=== PATIENT | female | born 1990 | race Caucasian/White ===

== ENCOUNTER 2020-09-27 08:31 | Emergency (ER) | payer MEDICAID ==
[~2020-09-27] VITALS: Ht 160 cm; Wt 73.2 kg
[~2020-09-27 08:31] MED LIST: METF500T17 PO
--- NOTE | 2020-09-27 10:05 | NUR ---
PT SITTING UPRIGHT ON GURNEY WATCHING TV AND ON CELL PHONE. NAD, VSS. PT PROVIDED WARM BLANKET. NO ADDITIONAL NEEDS AT THIS TIME. CALL LIGHT WITHIN REACH. WILL CONTINUE TO MONITOR.
[2020-09-27 10:07] LABS: BASOPHILS % (AUTO) 0 % (0-1); EOSINOPHILS % (AUTO) 0 % (1-7); LYMPHOCYTES % (AUTO) 18 % (22-44); MEAN CORPUSCULAR HEMOGLOBIN 28.3 pg (27.0-34.8); MEAN CORPUSCULAR HGB CONC 32.9 g/dL (32.4-35.8); MONOCYTES % (AUTO) 6 % (2-9); NEUTROPHILS % (AUTO) 76 % (42-75); PLATELET COUNT 159 x10^3/uL (130-400); RED BLOOD COUNT 5.32 x10^6/uL (3.82-5.3); RED CELL DISTRIBUTION WIDTH 13.7 % (9.6-15.2)
[2020-09-27 10:09] LABS: MD NO
[2020-09-27 10:14] LABS: ALBUMIN 3.3 g/dL (3.4-5.0); ANION GAP 5 mmol/L (5-15); CALCIUM 8.3 mg/dL (8.5-10.1); CHLORIDE 101 mmol/L (98-107)
[2020-09-27 10:20] LABS: ALANINE AMINOTRANSFERASE 98 U/L (12-78); ALKALINE PHOSPHATASE 116 U/L (45-117); BILIRUBIN,TOTAL 0.2 mg/dL (0.2-1.0); CREATININE 0.73 mg/dL (0.55-1.02); TOTAL PROTEIN 7.7 g/dL (6.4-8.2); TROPONIN I < 0.015 ng/mL (0.000-0.045)
[2020-09-27] MEDS ORDERED: SODIUM CHLORIDE 0.9% 1,000ML IVBOLUS ONE (10:30)
[2020-09-27 10:33] LABS: RAPID INFLUENZA A Negative (Negative); RAPID INFLUENZA B Negative (Negative)
[2020-09-27 11:50] VITALS: BP 112/60
--- NOTE | 2020-09-27 11:50 | NUR ---
Patient given discharge instructions and they have confirmed that they understand the instructions. Patient ambulatory with steady gait.
== END 2020-09-27 11:52 | disposition home or self-care (01) ==
LOC: ED 10:34
DX: U07.1 COVID-19 (principal); E11.65 Type 2 diabetes mellitus with hyperglycemia; R94.5 Abnormal results of liver function studies; R94.31 Abnormal electrocardiogram [ECG] [EKG]
CPT/HCPCS: 36415; 71045; 80053; 82962; 83605; 84484; 85025; 85379; 87040; 87400; 87635; 93005; 96360; 99285; J7030

== ENCOUNTER 2020-09-30 15:54 | Emergency (ER) | payer MEDICAID ==
[~2020-09-30] VITALS: Ht 162.6 cm; Wt 71.6 kg
[2020-09-30 16:58] LABS: BASOPHILS % (AUTO) 1 % (0-1); EOSINOPHILS % (AUTO) 0 % (1-7); LYMPHOCYTES % (AUTO) 20 % (22-44); MEAN CORPUSCULAR HEMOGLOBIN 28.4 pg (27.0-34.8); MEAN CORPUSCULAR HGB CONC 33.5 g/dL (32.4-35.8); MEAN PLATELET VOLUME 8.1 fL (7.4-10.4); MONOCYTES % (AUTO) 8 % (2-9); NEUTROPHILS % (AUTO) 72 % (42-75); PLATELET COUNT 224 x10^3/uL (130-400); RED BLOOD COUNT 5.21 x10^6/uL (3.82-5.3); RED CELL DISTRIBUTION WIDTH 13.9 % (9.6-15.2)
[2020-09-30 17:02] LABS: MD NO
[2020-09-30 17:06] LABS: ALBUMIN 2.9 g/dL (3.4-5.0); ANION GAP 6 mmol/L (5-15); CALCIUM 8.7 mg/dL (8.5-10.1); CHLORIDE 101 mmol/L (98-107); CREATININE 0.78 mg/dL (0.55-1.02)
[2020-09-30] MEDS ORDERED: ASPIRIN 81 MG TABLET CHEW ONE (20:51)
[2020-09-30] MEDS ORDERED: ASPIRIN 81 MG TABLET CHEW PO ONE (21:00)
--- NOTE | 2020-09-30 21:04 | NUR ---
PT WAS SEEN HERE EARLIER THIS AM FOR COVID AND RELATED SYMPTOMS, PT IS NAD, RESTING ON GURNEY, SIGNIFICANT OTHER AT BS, PULSES 2+, CAME IN FOR CHEST DISCOMFORT, RADIATING ACROSS CHEST, WORSENS WITH COUGHING AND DEEP BREATHING. SIGNIFICANT OTHER REPORTS PT WAS CONFUSED EARLIER AND HAVE DELUSIONS. ERP INFORMED. PT PLACED ON SPO2/BP/ECG MONITORING. WCTM.
[2020-09-30] MEDS ORDERED: KETOROLAC 60 MG/2 ML ONE (21:27)
[2020-09-30] MEDS ORDERED: KETOROLAC 30 MG/1 ML IM ONE (21:30)
--- NOTE | 2020-09-30 22:00 | NUR ---
LATE ENTRY D/T PT CARE: PT MEDICATED PER MAR FOR PAIN, NAD, NO CHANGE IN CONDITION, RESTING ON GURNEY, BED IN [facility], WAITING FOR RAD RESULTS .WCTM.
[2020-09-30 23:01] VITALS: BP 93/67
--- NOTE | 2020-09-30 23:02 | NUR ---
Patient given discharge instructions and they have confirmed that they understand the instructions. Patient ambulatory with steady gait. NAD, DENIES ADDITIONAL QUESTIONS OR NEEDS AT THIS TIME. NO PERSONAL BELONGINGS LEFT IN ROOM AT THE TIME OF DC.
== END 2020-09-30 23:06 | disposition home or self-care (01) ==
LOC: ED 21:13
DX: U07.1 COVID-19 (principal); J06.9 Acute upper respiratory infection, unspecified; J18.9 Pneumonia, unspecified organism; R06.02 Shortness of breath; R05 Cough; R50.9 Fever, unspecified; R07.89 Other chest pain; R00.0 Tachycardia, unspecified; E11.65 Type 2 diabetes mellitus with hyperglycemia; I10 Essential (primary) hypertension; Z86.39 Personal history of other endocrine, nutritional and metabolic disease; Z87.891 Personal history of nicotine dependence
CPT/HCPCS: 36415; 71045; 80048; 82040; 85025; 93005; 96372; 99285; J1885

== ENCOUNTER 2020-12-03 10:15 | Emergency (ER) | payer MEDICAID ==
[~2020-12-03] VITALS: Ht 160 cm; Wt 73.6 kg
--- NOTE | 2020-12-03 11:11 | NUR ---
TASK RN: PT AMBULATORY TO ROOM 5 W/ C/O CRAMPING AND DISCHARGE W/ LOWER BACK PAIN X 2 DAYS. PER PT DENIES ANY VB BUT HAS YELLOW DISCHARGE. A0. PT STATES SHE DOES NOT KNOW HOW FAR ALONG SHE IS HER MENSTRUAL CYCLE IS IRREGULAR. PT RESTING ON GURNEY. NADN. MONITORS APPLIED. VSS. WARM BLANKET PROVIDED.
--- NOTE | 2020-12-03 11:26 | NUR ---
PIV placed, tolerates well, labs sent. Pt reports lower abd pain and radiates to low back x 2 days, states "cramping" denies abnormal vaginal bleeding, denies pain w/ urination, postiive home test, LMP in september. Urine is yellow and cloudy. Pt denies N/V, afebrile, vitals stable on monitor.
--- NOTE | 2020-12-03 11:28 | NUR ---
TASK RN: REPORT GIVEN TO DILEEP PRIMARY RN.
--- NOTE | 2020-12-03 11:42 | NUR ---
Pt taken to US, waiting for results.
[2020-12-03 11:54] LABS: BASOPHILS % (AUTO) 0 % (0-1); EOSINOPHILS % (AUTO) 1 % (1-7); LYMPHOCYTES % (AUTO) 24 % (22-44); MEAN CORPUSCULAR HEMOGLOBIN 29.3 pg (27.0-34.8); MONOCYTES % (AUTO) 5 % (2-9); NEUTROPHILS % (AUTO) 70 % (42-75); PLATELET COUNT 224 x10^3/uL (130-400); RED BLOOD COUNT 5.07 x10^6/uL (3.82-5.3); RED CELL DISTRIBUTION WIDTH 14.5 % (9.6-15.2)
[2020-12-03 11:57] LABS: MD NO
--- NOTE | 2020-12-03 11:59 | NUR ---
Pt back from US, vitals stable, waiting for results.
[2020-12-03 12:04] LABS: MICROSCOPIC INDICATED
[2020-12-03 12:07] LABS: ALBUMIN 3.3 g/dL (3.4-5.0); ANION GAP 9 mmol/L (5-15); CALCIUM 8.7 mg/dL (8.5-10.1); CHLORIDE 106 mmol/L (98-107); CREATININE 0.87 mg/dL (0.55-1.02)
[2020-12-03] MEDS ORDERED: CEFTRIAXONE PMX 1GM/50ML 50 ML ONE (13:06)
--- NOTE | 2020-12-03 13:12 | NUR ---
IV fluids and rocephin infusing per MD orders, vitals stable.
[2020-12-03] MEDS ORDERED: SODIUM CHLORIDE 0.9% 1,000ML IVBOLUS ONE (13:30)
[2020-12-03] MEDS ORDERED: CEFTRIAXONE PMX 1GM/50ML 50 ML IVPB ONE (13:30)
[2020-12-03 13:51] VITALS: BP 92/52
--- NOTE | 2020-12-03 13:52 | NUR ---
PT RESTING IN [facility] AT THIS TIME, MONITORING IN PLACE, PER PT NO NEEDS AT THIS TIME, WCTM.
== END 2020-12-03 14:16 | disposition home or self-care (01) ==
LOC: ED 12:09
DX: O23.41 Unspecified infection of urinary tract in pregnancy, first trimester (principal); N83.292 Other ovarian cyst, left side; R73.9 Hyperglycemia, unspecified; Z3A.01 Less than 8 weeks gestation of pregnancy; Z87.891 Personal history of nicotine dependence
CPT/HCPCS: 36415; 76801; 80048; 81001; 82040; 84702; 85025; 86901; 87086; 96365; 99284; J0696; J7030

== ENCOUNTER 2021-03-10 06:34 | Emergency (ER) | payer MEDICAID ==
[~2021-03-10] VITALS: Ht 160 cm; Wt 75.8 kg
[2021-03-10] MEDS ORDERED: SODIUM CHLORIDE 0.9% 1,000ML IVBOLUS ONE (07:00)
[2021-03-10] MEDS ORDERED: ONDANSETRON 2MG/ML, 2ML IVPush ONE (07:00)
[2021-03-10] MEDS ORDERED: MORPHINE SULFATE 4 MG/ML, 1ML IVPush PRN (07:00)
[2021-03-10] MEDS ORDERED: ONDANSETRON 2MG/ML, 2ML ONE (07:05)
[2021-03-10] MEDS ORDERED: MORPHINE SULFATE 4 MG/ML, 1ML ONE (07:06)
--- NOTE | 2021-03-10 07:18 | NUR ---
RUQ PAIN SINCE YESTERDAY WITH SOME VOMITING, (SHARP). LMP 2MONTHS AGO, PT REPORTS THAT SHE JUST FOUND OUT THAT SHE IS . PT IN BED IN GOWN WITH CONT SPO2, BPQ 30 MIN, SIDE RAILS UP X2, CALL LIGHT IN REACH. FAMILY AT BEDSIDE. WENT OVER PLAN OF CARE FROM ORDER, AGREES TO PLAN.
[2021-03-10 07:21] LABS: BASOPHILS % (AUTO) 1 % (0-1); EOSINOPHILS % (AUTO) 1 % (1-7); LYMPHOCYTES % (AUTO) 35 % (22-44); MEAN CORPUSCULAR HEMOGLOBIN 27.9 pg (27.0-34.8); MEAN CORPUSCULAR HGB CONC 32.9 g/dL (32.4-35.8); MEAN PLATELET VOLUME 9.1 fL (7.4-10.4); MONOCYTES % (AUTO) 6 % (2-9); NEUTROPHILS % (AUTO) 57 % (42-75); PLATELET COUNT 228 x10^3/uL (130-400); RED BLOOD COUNT 5.18 x10^6/uL (3.82-5.3); RED CELL DISTRIBUTION WIDTH 15.4 % (9.6-15.2)
--- NOTE | 2021-03-10 07:21 | NUR ---
BLOOD SENT TO LAB
[2021-03-10 07:23] LABS: MD NO
[2021-03-10 07:32] LABS: ALANINE AMINOTRANSFERASE 52 U/L (12-78); ALBUMIN 3.3 g/dL (3.4-5.0); ANION GAP 7 mmol/L (5-15); CALCIUM 8.6 mg/dL (8.5-10.1); CHLORIDE 105 mmol/L (98-107); CREATININE 0.67 mg/dL (0.55-1.02)
--- NOTE | 2021-03-10 07:32 | NUR ---
PT IN US
[2021-03-10 07:49] LABS: ALKALINE PHOSPHATASE 92 U/L (45-117); BILIRUBIN,TOTAL 0.2 mg/dL (0.2-1.0); TOTAL PROTEIN 7.2 g/dL (6.4-8.2)
[2021-03-10 08:46] LABS: MICROSCOPIC INDICATED
[2021-03-10 09:35] VITALS: BP 102/62
== END 2021-03-10 09:49 | disposition home or self-care (01) ==
LOC: ED 08:51
DX: O23.11 Infections of bladder in pregnancy, first trimester (principal); E11.65 Type 2 diabetes mellitus with hyperglycemia; R10.2 Pelvic and perineal pain; R10.31 Right lower quadrant pain; R10.32 Left lower quadrant pain; R11.0 Nausea; Z86.39 Personal history of other endocrine, nutritional and metabolic disease; Z3A.08 8 weeks gestation of pregnancy
CPT/HCPCS: 36415; 76700; 76801; 80053; 81001; 83690; 84702; 85025; 86901; 87086; 96361; 96374; 96375; 99285; J2270; J2405; J7030; 96360